=== PATIENT | male | born 1990 | race African-American/Black ===

== ENCOUNTER 2016-11-04 19:35 | Emergency (ER) | payer BC ==
[2016-11-04] MEDS ORDERED: DICYCLOMINE 20MG/2ML VIAL IM ONE (21:19)
[2016-11-04] MEDS ORDERED: ALU/MAG/SIM 30 ML UDC ONE ×2 (22:30)
[2016-11-04] MEDS ORDERED: LIDOCAINE 2% VISC 15 ML UDC ONE (22:31)
== END 2016-11-04 23:25 | disposition home or self-care (01) ==
LOC: ER 19:35
CPT/HCPCS: 36415; 76705; 80053; 81003; 83690; 85025; 96372